=== PATIENT | male | born 1985 | race African-American/Black ===

== ENCOUNTER 2016-04-17 21:01 | Inpatient (IN) | payer OTHER ==
[~2016-04-17] VITALS: Ht 188 cm; Wt 78.5 kg
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
--- NOTE | ~2016-04-17 | EKG ---
[place] [address] [facility] [place] [address] ELECTROCARDIOGRAM REPORT Name: SUSANA CORTES Room #: 240-P ADM IN M.R.#: [id number] Admission: 04/18/16 Attend Phys: Lupe Dupree MD Discharge: Date of : 87 Report #: [id number] THIS REPORT FOR: //name// [facility] ED Test Date: 2016-04-17 Test Time: 21:12:30 Pat Name: SUSANA CORTES Department: Room: 240 Gender: M Documentation Writer: MZOOK : 1985 Requested By: Alyson Cummings Order Number: [id number] MD: Tree Zhang Measurements Intervals [place] Rate: 77 P: 71 AK: 160 QRS: 54 QRSD: 80 T: 42 QT: 383 QTc: 434 Interpretive Statements Sinus rhythm ST elev, probable normal early repol pattern No previous ECG available for comparison Electronically Signed On 04-18-2016 8:05:03 MEETING COORDINATOR by Tree Zhang [email or web address] <ELECTRONICALLY SIGNED> By: Tree Zhang MD, [facility] 04/18/16 0805 11 11 Tree Zhang MD, FACC /EPI
[~2016-04-17 21:01] MED LIST: AUGMENTIN 875875 MG PO
[2016-04-17 21:16] VITALS: BP 142/76
[2016-04-17 21:24] LABS: ABSOLUTE NEUTROPHILS 5.9 thou/uL (1.4-8.2); BASOPHILS 0.7 % (0.0-2.0); EOSINOPHILS 0.9 % (0.0-3.0); HEMOGLOBIN 15.6 gm/dL (14.0-18.0); LYMPHOCYTES 17.7 % (24.0-44.0); MCH 30.1 pg (26.0-34.0); MCHC 33.3 % (28.0-37.0); MCV 90.3 fL (80.0-100.0); MONOCYTES 5.6 % (1.0-8.0); PLATELET COUNT 216 thou/uL (150-400); POLYS 75.1 % (36.0-66.0); RDW 14.1 % (10.5-14.5); WBC 7.9 thou/uL (4.0-11.0)
[2016-04-17 21:27] LABS: MANUAL DIFF NO
[2016-04-17 21:33] LABS: ANION GAP 9 mmol/L (7-16); BUN 14 mg/dL (7-18); CALCIUM 9.2 mg/dL (8.5-10.1); CHLORIDE 104 mmol/L (98-107); CO2 28 mmol/L (21-32); CREATININE 1.4 mg/dL (0.6-1.3); GLUCOSE 91 mg/dL (70-99); POTASSIUM 3.7 mmol/L (3.5-5.1); SODIUM 141 mmol/L (136-145)
[2016-04-17 21:34] LABS: ABG SAMPLE TYPE VENOUS; BE(vivo) 2.3 mmol/L (-2 to +3); HCO3 27.8 mmol/L (22.0-26.0); LACTATE 1.54 mmol/L (0.5-2.0); O2(CT) 15.9 mL/dL (15.0-23.0); O2Hb VENOUS 73.8 (65.0-85.0); PCO2 VENOUS 46.5 mmHg (41.0-51.0); PO2 VENOUS 40.3 mmHg (35.0-45.0); sO2 VENOUS 74.8 % (65.0-85.0); tCO2 29.3 mmol/L (24.0-30.0)
[2016-04-17 21:35] LABS: STICK SITE LINE
[2016-04-17 21:38] LABS: ALBUMIN 3.9 g/dL (3.4-5.0); ALKALINE PHOSPHATASE 57 U/L (46-116); SALICYLATE 17.1 mg/dL (2.8-20.0); SGOT 7 U/L (15-37); SGPT 25 U/L (30-65); TOTAL BILIRUBIN 0.2 mg/dL (<0.1-1.0); TOTAL PROTEIN 7.7 g/dL (6.4-8.2)
[2016-04-17 21:39] LABS: ACETAMINOPHEN < 2 ug/mL (10-30)
[2016-04-17 23:02] LABS: URINE BILIRUBIN NEGATIVE (Negative); URINE BLOOD NEGATIVE (Negative); URINE COLOR YELLOW; URINE GLUCOSE-RANDOM* NEGATIVE (Negative); URINE KETONES NEGATIVE (Negative); URINE LEUKOCYTES-REFLEX TRACE (Negative); URINE PROTEIN (DIPSTICK) NEGATIVE (Negative); URINE UROBILINOGEN 0.2 E.U./dl (0.2-1.0)
[2016-04-17 23:10] LABS: AMP/METHAMP Negative (Negative); BARBITURATES Negative (Negative); BENZODIAZEPINES Negative (Negative); COCAINE POSITIVE (Negative); METHADONE Negative (Negative); OPIATES Negative (Negative); PCP Negative (Negative); THC POSITIVE (Negative)
[2016-04-17 23:34] LABS: CALCIUM 8.5 mg/dL (8.5-10.1); CREATININE 1.3 mg/dL (0.6-1.3); POTASSIUM 4.1 mmol/L (3.5-5.1)
[2016-04-17 23:37] LABS: SALICYLATE 33.9 mg/dL (2.8-20.0)
[2016-04-18] VITALS (16 sets, daily range): BP systolic 98–140; BP diastolic 49–90
[2016-04-18 10:11] LABS: HEMATOCRIT 43.1 % (42.0-52.0); HEMOGLOBIN 14.4 gm/dL (14.0-18.0); MCH 29.9 pg (26.0-34.0); MCHC 33.3 % (28.0-37.0); MCV 89.8 fL (80.0-100.0); RBC 4.8 mil/uL (4.50-6.00); RDW 14.2 % (10.5-14.5); WBC 6.6 thou/uL (4.0-11.0)
[2016-04-18 10:29] LABS: ALBUMIN 3.3 g/dL (3.4-5.0); CALCIUM 8.6 mg/dL (8.5-10.1); CREATININE 1.3 mg/dL (0.6-1.3); SALICYLATE 18.4 mg/dL (2.8-20.0); TOTAL BILIRUBIN 0.2 mg/dL (<0.1-1.0); TOTAL PROTEIN 6.6 g/dL (6.4-8.2)
[2016-04-18] MEDS ORDERED: PEPCID20 MG PO (12:51)
== END 2016-04-18 13:05 | disposition home or self-care (01) | DRG 918 ==
LOC: ER 21:01 → ICU 04-18 00:20 → EROBS 04-18 00:20 → ICU 04-18 00:44
PROVIDERS: Emergency Medicine; Nurse Practitioner Acute Care
DX: T39.012A Poisoning by aspirin, intentional self-harm, initial encounter (principal); N17.9 Acute kidney failure, unspecified; T39.312A Poisoning by propionic acid derivatives, intentional self-harm, initial encounter; T49.6X2A Poisoning by otorhinolaryngological drugs and preparations, intentional self-harm, initial encounter; T39.092A Poisoning by salicylates, intentional self-harm, initial encounter; F17.210 Nicotine dependence, cigarettes, uncomplicated; F19.10 Other psychoactive substance abuse, uncomplicated; F43.22 Adjustment disorder with anxiety; F12.90 Cannabis use, unspecified, uncomplicated; Z79.1 Long term (current) use of non-steroidal anti-inflammatories (NSAID); Y92.9 Unspecified place or not applicable; Z91.018 Allergy to other foods; Z91.048 Other nonmedicinal substance allergy status; Z82.49 Family history of ischemic heart disease and other diseases of the circulatory system; Z80.1 Family history of malignant neoplasm of trachea, bronchus and lung
CPT/HCPCS: 10078